=== PATIENT | male | born 1985 | race African-American/Black ===

== ENCOUNTER 2020-10-18 15:39 | Emergency (ER) | payer SELFPAY ==
[2020-10-18 15:45] VITALS: BP 121/82; PULSE 95; RESP 16; TEMP 36.5; O2SAT 100
[2020-10-18 16:06] LABS: Add Urine Microscopic? YES; Appearance Urine Clear (Clear); Bilirubin Urine Negative (Negative); Blood Urine Negative (Negative); Color Urine Yellow (Yellow); Glucose Urine UA Negative (Negative); Ketones Urine Negative (Negative); Leukocyte Esterase Ur 2+ LEU/UL (Negative); Mucus Urine Rare /lpf; Nitrate Urine Negative (Negative); Protein Urine Negative (Negative); Specific Grav Ur 1.016 (1.001-1.035); Squamous Epithelial Cell Urine Rare /hpf (Few); Urobilinogen Urine Negative mg/dL (<2.0); WBC Urine 51-75 /hpf
--- NOTE | 2020-10-18 18:39 | ED.MALEGU ---
HPI - Male Genitourinary General Chief complaint: Urogenital-Male Stated complaint: STD Medications Time Seen by Provider: 10/18/20 18:19 Source: patient Mode of arrival: ambulatory Limitations: no limitations History of Present Illness HPI Narrative: Patient is a 35 year old male who presents complaining of burning of urination x 2 days. He reports penile discharge. Reports girlfriend has exposure to gonorrhea. He denies all other complaints. Related Data Allergies Allergy/AdvReac Type Severity Reaction Status Date / Time No Known Allergies Allergy Verified 10/18/20 18:22 Review of Systems Review of Systems: Narrative: CONSTITUTIONAL: Denies fever, chills, or sweats. EYES: Denies visual changes, redness, or discharge. ENT: Denies rhinorrhea, congestion, sore throat, or otalgia. CARDIOVASCULAR: Denies chest pain, palpitations, or edema. RESPIRATORY: Denies cough or dyspnea. GASTROINTESTINAL: Denies abdominal pain, nausea, vomiting, or diarrhea. GENITOURINARY: Reports dysuria and penile discharge. SKIN: Denies rash or itching. MUSCULOSKELETAL: Denies back pain, joint pain, or myalgia. NEUROLOGIC: Denies headache, numbness, dizziness, or weakness. PSYCHIATRIC: Denies anxiety or depression. [facility] Past Medical History Medical History (Updated 10/19/20 @ 00:01 by Agata Greenberg) Appendicitis Surgical History Surgical History (Updated 10/18/20 @ 18:41 by CHUY Sen) History of appendectomy Family History Family History (Updated 10/18/20 @ 18:42 by CHUY Sen) Other No significant family history Social History Social History (Updated 10/18/20 @ 18:42 by CHUY Sen) Smoking status: Current every day smoker Alcohol intake: current Alcohol use details: Occasional Substance use: current Substance use type: marijuana Comments At the time of signature, I have reviewed and agree with nursing past medical, surgical, social, and family history unless otherwise noted. Please see nursing chart for further information. There is no relevant family history pertinent to the presenting complaint. Exam Narrative: Exam Narrative: GENERAL: Well-appearing, well-nourished, and in no acute distress. HEAD: Normocephalic, atraumatic. EYES: EOMI. No redness or drainage. Conjunctiva are normal. ENT: Mucous membranes pink and moist. CHEST: No respiratory distress. Clear to auscultation. HEART: Regular rate and rhythm. EXTREMITIES: Normal range of motion. SKIN: Warm, dry, no rash. NEURO: No focal deficits. Alert and oriented x3. Gait steady. PSYCH: Normal affect. No signs of depression or anxiety. Course Vital Signs Vital signs: Vital Signs Temperature 36.5 C 10/18/20 15:45 Pulse Rate 95 10/18/20 15:45 Respiratory Rate 16 10/18/20 15:45 Blood Pressure 121/82 10/18/20 15:45 Pulse Oximetry 100 10/18/20 15:45 Temperature 36.5 C 10/18/20 15:45 Pulse Rate 78 10/18/20 19:29 Respiratory Rate 16 10/18/20 19:29 Blood Pressure 121/85 10/18/20 19:29 Pulse Oximetry 100 10/18/20 19:29 Reviewed MDM - Male Genitourinary MDM Narrative Medical decision making narrative: Patient requesting treatment for STDs.. Discussed medications, discussed safe sex practices. Patient is stable for discharge to home with outpatient follow-up as needed. Differential Diagnosis Differential diagnosis: Likely urinary tract infection, epididymitis and other (Gonorrhea, chlamydia, trichomoniasis) Lab Data Labs: Lab Results 10/18/20 10/18/20 Range/Units 15:49 15:52 Urine Color Yellow (Yellow) Urine Appearance Clear (Clear) Urine pH 6.0 (5.0-9.0) Ur Specific [place] 1.016 (1.001-1.035) Urine Protein Negative (Negative) mg/dL Urine Glucose (UA) Negative (Negative) mg/dL Urine Ketones Negative (Negative) mg/dL Ur Blood (Man) Negative (Negative) Urine Nitrate Negative (Negative) Urine Bilirubin Negative (Negative)
[2020-10-18] MEDS: cefTRIAXone 1 GM VIAL 0.5 GM IM (19:17)
[2020-10-18 19:29] VITALS: BP 121/85; PULSE 78; RESP 16; O2SAT 100
== END 2020-10-18 19:31 | disposition home or self-care (01) ==
PROVIDERS: Emergency Medicine; Emergency Provider Nurse Practitioner
DX: Z20.2 Contact with and (suspected) exposure to infections with a predominantly sexual mode of transmission (principal)
CPT/HCPCS: 81001; 87086; 87491; 87591; 96372; 99283; J0696